=== PATIENT | female | born 1940 | race African-American/Black ===

== ENCOUNTER 2016-10-01 09:15 | Emergency (ER) | payer MEDICARE, BC ==
[~2016-10-01] VITALS: Ht 160 cm; Wt 80.0 kg
[~2016-10-01 09:15] MED LIST: ACETTAB3 OR; CIPROFLOXACN500 MG PO; COZAAR50 MG OR; CRESTOR10 MG PO; FEXOFENADINE180 MG OR; FLUTICASONE50 MCG; GENTAMICIN15 ML/BTL OP; HYDROCHLOROT12.5 M1 OR; HYZAAR1 TA1 OR; HYZAAR1 TA1 PO; LORTAB 5 OR; LORTAB 7.5 OR; LORTAB5 PO; NAPROSYN500 MG PO; PERCOCET 5/325M1 TAB PO; RESTASIS0.05 % OP; RESTORIL15 M1 OR; XANAX XR0.5 MG PO
[2016-10-01 09:58] LABS: HEMATOCRIT 37.1 % (37.0-47.0); HEMOGLOBIN 12.1 g/dl (12.0-16.0); IMMATURE GRANULOCYTES 0.1 % (0.0-1.0); MEAN CELL VOLUME 91.8 fL CALC (80.0-100.0); MEAN CORPUSCULAR HGB CONC 32.6 g/L CALC (32.0-36.0); NEUT# 3.89 thou/uL (2.00-7.15); RED BLOOD COUNT 4.04 mill/uL (4.20-5.60); RED CELL DISTRI WIDTH 14.5 % (11.5-15.5)
[2016-10-01 10:24] LABS: ALBUMIN 4.2 g/dL (3.2-5.0); BILIRUBIN, TOTAL 0.4 mg/dL (0.0-1.4); CALCIUM 9.9 mg/dL (8.4-10.2); CREATININE 1.2 mg/dL (0.5-1.0); POTASSIUM 3.8 mmol/l (3.5-5.1); TOTAL PROTEIN 7.5 g/dL (6.3-8.2)
[2016-10-01 10:54] LABS: TSH, 3RD GENERATION 1.12 uIU/mL (0.47 - 4.68)
[2016-10-01 12:50] VITALS: BP 147/65
== END 2016-10-01 12:52 | disposition home or self-care (01) ==
LOC: ED 09:15
PROVIDERS: Emergency Medicine
DX: R22.1 Localized swelling, mass and lump, neck (principal); M54.2 Cervicalgia; I10 Essential (primary) hypertension; E78.00 Pure hypercholesterolemia, unspecified

== ENCOUNTER 2018-02-05 14:38 | Emergency (ER) | payer MEDICARE, BC ==
[~2018-02-05] VITALS: Ht 160 cm; Wt 66.0 kg
[2018-02-05] MEDS ORDERED: KETOROLAC PO (15:14)
[2018-02-05 15:30] VITALS: BP 182/80
== END 2018-02-05 15:30 | disposition home or self-care (01) ==
LOC: ED 14:38
DX: S46.911A Strain of unspecified muscle, fascia and tendon at shoulder and upper arm level, right arm, initial encounter (principal); I10 Essential (primary) hypertension; E78.00 Pure hypercholesterolemia, unspecified; W22.09XA Striking against other stationary object, initial encounter; Y92.009 Unspecified place in unspecified non-institutional (private) residence as the place of occurrence of the external cause

== ENCOUNTER 2018-09-09 13:18 | Emergency (ER) | payer MEDICARE, BC ==
[~2018-09-09] VITALS: Ht 160 cm; Wt 67.0 kg
[~2018-09-09 13:18] MED LIST changes: +KETOROLAC PO
[2018-09-09] MEDS ORDERED: XANAX0.25 MG PO (15:28)
[2018-09-09] MEDS ORDERED: PANTOPRAZOLE SO40 MG PO (15:28)
[2018-09-09 16:05] VITALS: BP 179/77
== END 2018-09-09 16:05 | disposition home or self-care (01) ==
LOC: ED 13:18
DX: S90.31XA Contusion of right foot, initial encounter (principal); W22.8XXA Striking against or struck by other objects, initial encounter; Y93.E9 Activity, other interior property and clothing maintenance; Y92.009 Unspecified place in unspecified non-institutional (private) residence as the place of occurrence of the external cause

== ENCOUNTER 2019-05-04 | Emergency (ER) | payer MEDICARE, BC ==
[~2019-05-04] MED LIST changes: +PANTOPRAZOLE SO40 MG PO; +XANAX0.25 MG PO
[2019-05-04 22:19] LABS: HEMATOCRIT 34.1 % (37.0-47.0); HEMOGLOBIN 10.8 g/dl (12.0-16.0); IMMATURE GRANULOCYTES 0.3 % (0.0-5.0); MEAN CELL VOLUME 93.9 fL CALC (80.0-100.0); MEAN CORPUSCULAR HGB 29.8 pG CALC (26.0-32.0); MEAN CORPUSCULAR HGB CONC 31.7 g/L CALC (32.0-36.0); NEUT# 6.12 thou/uL (2.00-7.15); RED BLOOD COUNT 3.63 mill/uL (4.20-5.60); RED CELL DISTRI WIDTH 14.2 % (11.5-15.5)
[2019-05-04 22:41] LABS: ALKALINE PHOSPHATASE 91 u/l (38-126); AMYLASE 123 u/l (30-110); ANION GAP 11 (6-22 (CALC)); BILIRUBIN, TOTAL 0.5 mg/dL (0.0-1.4); BUN 16 mg/dL (8-23); BUN/CREATININE RATIO 13 (12-20 (CALC)); CARBON DIOXIDE 27 mmol/l (22-30); CHLORIDE 105 mmol/l (95-108); CREATININE 1.2 mg/dL (0.5-1.0); GFR 43 ML/MIN (>=60 (CALC)); GFR FOR AFR.AMER. 52 ML/MIN (>=60 (CALC)); LIPASE 230 u/l (23-300); POTASSIUM 3.4 mmol/l (3.5-5.1); SODIUM 140 mmol/l (137-146); TOTAL PROTEIN 7.3 g/dL (6.3-8.2)
[2019-05-04 22:47] LABS: SGOT/AST 228 u/l (9-36)
[2019-05-04 22:51] LABS: MYOGLOBIN 65 ng/mL (0 - 62)
[2019-05-05 00:06] LABS: URINE BILIRUBIN - DIPSTICK NEGATIVE (NEGATIVE); URINE BLOOD DIPSTICK NEGATIVE (NEGATIVE); URINE COLOR YELLOW; URINE GLUCOSE - DIPSTICK NEGATIVE (NEGATIVE); URINE KETONE NEGATIVE (NEGATIVE); URINE LEUK ESTERASE TRACE (NEGATIVE); URINE NITRITE - DIPSTICK NEGATIVE (Negative); URINE PH 6.5 (4.5-8.0); URINE PROTEIN - DIPSTICK NEGATIVE (NEG-TRACE); URINE UROBILINOGEN - DIPSTICK 0.2 E.U./dL (0.2)
[2019-05-05] MEDS ORDERED: ONDANSETRON4 MG PO (01:32)
[2019-05-05] MEDS ORDERED: PREVACID30 M3 PO (01:32)
[2019-05-06] MEDS ORDERED: PROTONIX40 M2 PO (12:33)
== END 2019-05-05 01:58 | disposition home or self-care (01) ==
PROVIDERS: Emergency Medicine
DX: A08.4 Viral intestinal infection, unspecified (principal); I10 Essential (primary) hypertension
CPT/HCPCS: Q9967

== ENCOUNTER 2021-05-01 09:13 | Emergency (ER) | payer MEDICARE ==
[~2021-05-01] VITALS: Ht 160 cm; Wt 70.0 kg
[~2021-05-01 09:13] MED LIST changes: +ONDANSETRON4 MG PO; +PREVACID30 M3 PO; +PROTONIX40 M2 PO
[2021-05-01] MEDS ORDERED: CALCI17 PO (10:29)
[2021-05-01] MEDS ORDERED: MOTRIN400 MG/TAB PO (10:43)
[2021-05-01 10:46] VITALS: BP 187/85
== END 2021-05-01 10:51 | disposition home or self-care (01) ==
LOC: ED 09:13
DX: M25.511 Pain in right shoulder (principal); M54.50 Low back pain, unspecified; I10 Essential (primary) hypertension; E78.00 Pure hypercholesterolemia, unspecified; W19.XXXA Unspecified fall, initial encounter; Y92.009 Unspecified place in unspecified non-institutional (private) residence as the place of occurrence of the external cause

== ENCOUNTER 2021-10-27 13:00 | Emergency (ER) | payer MEDICARE ==
[~2021-10-27] VITALS: Ht 160 cm; Wt 75.0 kg
[2021-10-27] VITALS (7 sets, daily range): BP systolic 150–164; BP diastolic 59–73
[~2021-10-27 13:00] MED LIST changes: +CALCI17 PO; +MOTRIN400 MG/TAB PO
[2021-10-27] MEDS ORDERED: MOTRIN400 MG/TAB PO (14:45)
[2021-10-27] MEDS ORDERED: VOLTAREN1%GEL TOP (14:45)
== END 2021-10-27 15:00 | disposition home or self-care (01) ==
LOC: ED 13:00
DX: M25.511 Pain in right shoulder (principal); M25.561 Pain in right knee; I10 Essential (primary) hypertension